=== PATIENT | male | born 1960 | race African-American/Black ===

== ENCOUNTER 2019-03-18 15:11 | Inpatient (IN) | payer MEDICAID ==
[~2019-03-18] VITALS: Ht 170.2 cm; Wt 65.8 kg
[2019-03-18] MEDS ORDERED: MORPHINE SULFATE 4 MG/ML CPJ (NOT FOR IM USE) IV STA (16:05)
[2019-03-18] MEDS ORDERED: ONDANSETRON HCL 4MG/2ML INJ IV STA (16:05)
[2019-03-18] MEDS ORDERED: SODIUM CHLORIDE 0.9% 1,000 ML IV ONE (16:05)
[2019-03-18] MEDS ORDERED: PIPERACILLIN/TAZ 3.375G PREMIX 50 ML IV ONE (16:15)
[2019-03-18] MEDS ORDERED: VANCOMYCIN 1 G PREMIX 200 ML IV ONE (16:15)
[2019-03-18 16:46] LABS: BASOPHILS % 0.8 % (0.0-2.0); EOSINOPHILS % 1.8 % (0.0-5.0); HEMATOCRIT. 37.9 % (42.0-52.0); HEMOGLOBIN. 12.7 g/dL (14.0-18.0); LYMPHOCYTES % 16.5 % (20.0-50.0); MEAN CORPUSCULAR HEMOGLOBIN 28.9 pg (28.0-32.0); MEAN CORPUSCULAR VOLUME 86.4 fL (80.0-94.0); MEAN PLATELET VOLUME 8.8 fl (7.4-10.4); MONOCYTES % 8.2 % (2.0-8.0); NEUTROPHILS % 72.7 % (40.0-76.0); PLATELET 337 x1000/uL (130-400); RED BLOOD CELL COUNT 4.38 mill/uL (4.7-6.1); RED CELL DISTRIBUTION WIDTH 15.7 % (11.6-14.6)
[2019-03-18 16:47] LABS: CHLORIDE 103 mEq/L (98-107)
[2019-03-18 16:50] LABS: PROTHROMBIN TIME 10.7 sec (9.6-11.0)
[2019-03-18 17:49] LABS: CLARITY URINE CLOUDY (CLEAR); COLOR URINE YELLOW (YELLOW); KETONES URINE NEGATIVE (NEGATIVE); LEUKOCYTE ESTERASE URINE 3+ (NEGATIVE); NITRITE URINE NEGATIVE (NEGATIVE); OCCULT BLOOD URINE NEGATIVE (NEGATIVE); PROTEIN URINE NEGATIVE (NEGATIVE); SPECIFIC GRAVITY URINE 1.012 (1.005-1.030); UROBILINOGEN URINE 0.2 E.U./dL (0.2-1.0)
[2019-03-18 22:00] VITALS: BP 130/86
[2019-03-18] MEDS ORDERED: DEXTROSE 50% WATER 50ML SYRINGE IV PRN (22:45)
[2019-03-18] MEDS ORDERED: ONDANSETRON HCL 4MG/2ML INJ IV PRN (22:45)
[2019-03-18] MEDS ORDERED: DIPHENHYDRAMINE 50MG/ML VIAL IV PRN (22:45)
[2019-03-19] VITALS: BP 124/74
[2019-03-19] MEDS ORDERED: PIPERACILLIN/TAZOBACTAM 3.375GM/50ML PREMIX IV ONE
[2019-03-19] MEDS: PIPERACILLIN/TAZOBACTAM 3.375 G in DEXT 5% WATER 100 ML IV SCH ×4 (01:30→18:00)
[2019-03-19] MEDS: MORPHINE SULFATE 2 MG/ML CPJ (NOT FOR IM USE) IV PRN ×3 (01:31→13:19)
[2019-03-19 04:00] VITALS: BP 123/68
[2019-03-19] MEDS: VANCOMYCIN 1 G PREMIX 200 ML IV SCH ×2 (06:06→18:22)
[2019-03-19 08:00] VITALS: BP 148/95
[2019-03-19] MEDS: BLOOD SUGAR DIAGNOSTIC STRIP TEST SCH ×4 (08:17→21:00)
[2019-03-19] MEDS: INSULIN LISPRO 100 UNITS/ML SUBCUT SCH ×4 (08:36→22:04)
[2019-03-19 12:15] VITALS: BP 123/81
[2019-03-19 12:29] LABS: METHADONE URINE SCREEN NEGATIVE (NEGATIVE); OPIATES URINE SCREEN PRESUMTIVE POSITIVE (NEGATIVE)
[2019-03-19 12:30] LABS: *AMPHETAMINES SCREEN URINE NEGATIVE (NEGATIVE); *BARBITURATES SCREEN URINE NEGATIVE (NEGATIVE); *BENZODIAZEPINES SCREEN URINE NEGATIVE (NEGATIVE); *COCAINE SCREEN URINE NEGATIVE (NEGATIVE); CANNABINOID URINE SCREEN NEGATIVE (NEGATIVE); PHENCYCLIDINE URINE SCREEN NEGATIVE (NEGATIVE)
[2019-03-19] MEDS: ENOXAPARIN 40MG/0.4ML SYR SUBCUT SCH (17:57)
[2019-03-19] MEDS: HYDROCODONE/ACETAMINOPHEN 5/325MG TABLET PO PRN ×2 (18:23→22:59)
[2019-03-19 20:00] VITALS: BP 125/81
[2019-03-19] MEDS ORDERED: INSULIN GLARGINE UD 100 UNITS/ML SYR SUBCUT SCH (22:00)
[2019-03-20] MEDS: PIPERACILLIN/TAZOBACTAM 3.375 G in DEXT 5% WATER 100 ML IV SCH ×4 (01:06→18:34)
[2019-03-20] MEDS: VANCOMYCIN 1 G PREMIX 200 ML IV SCH ×2 (03:25→16:19)
[2019-03-20] MEDS: HYDROCODONE/ACETAMINOPHEN 5/325MG TABLET PO PRN ×3 (03:35→16:21)
[2019-03-20 04:00] VITALS: BP 136/87
[2019-03-20] MEDS: DIPHENHYDRAMINE 25MG CAPSULE PO PRN ×3 (04:35→20:44)
[2019-03-20] MEDS: BLOOD SUGAR DIAGNOSTIC STRIP TEST SCH ×4 (06:17→20:39)
[2019-03-20 07:28] LABS: BASOPHILS % 0.9 % (0.0-2.0); EOSINOPHILS % 4.1 % (0.0-5.0); HEMATOCRIT. 36.1 % (42.0-52.0); HEMOGLOBIN. 12.1 g/dL (14.0-18.0); LYMPHOCYTES % 24.8 % (20.0-50.0); MEAN CORPUSCULAR HEMOGLOBIN 28.8 pg (28.0-32.0); MEAN CORPUSCULAR VOLUME 85.9 fL (80.0-94.0); MEAN PLATELET VOLUME 9.6 fl (7.4-10.4); MONOCYTES % 9.6 % (2.0-8.0); NEUTROPHILS % 60.6 % (40.0-76.0); PLATELET 318 x1000/uL (130-400); RED CELL DISTRIBUTION WIDTH 15.5 % (11.6-14.6)
[2019-03-20 07:33] LABS: CHLORIDE 100 mEq/L (98-107)
[2019-03-20 08:18] VITALS: BP 133/85
[2019-03-20] MEDS ORDERED: LANTUSUD SUBCUT (08:37)
[2019-03-20] MEDS: ENOXAPARIN 40MG/0.4ML SYR SUBCUT SCH (08:37)
[2019-03-20] MEDS: INSULIN LISPRO 100 UNITS/ML SUBCUT SCH ×4 (09:03→20:40)
[2019-03-20] MEDS: INSULIN GLARGINE UD 100 UNITS/ML SYR SUBCUT SCH ×2 (10:46→22:05)
[2019-03-20 11:36] VITALS: BP 126/79
[2019-03-20 15:23] VITALS: BP 119/72
[2019-03-20 20:00] VITALS: BP 120/72
[2019-03-20] MEDS: ZOLPIDEM TARTRATE 5MG TABLET PO PRN (21:11)
[2019-03-21] VITALS: BP 110/70
[2019-03-21] MEDS: PIPERACILLIN/TAZOBACTAM 3.375 G in DEXT 5% WATER 100 ML IV SCH ×4 (00:03→18:05)
[2019-03-21] MEDS: VANCOMYCIN 1 G PREMIX 200 ML IV SCH ×2 (03:54→16:29)
[2019-03-21 04:00] VITALS: BP 103/60
[2019-03-21] MEDS: BLOOD SUGAR DIAGNOSTIC STRIP TEST SCH ×4 (06:54→21:00)
[2019-03-21] MEDS: INSULIN LISPRO 100 UNITS/ML SUBCUT SCH ×4 (07:50→22:25)
[2019-03-21 08:29] VITALS: BP 108/75
[2019-03-21] MEDS: LACTOBACILLUS GG CAPSULE PO SCH ×3 (09:41→16:29)
[2019-03-21] MEDS: HYDROCODONE/ACETAMINOPHEN 5/325MG TABLET PO PRN ×3 (09:41→22:24)
[2019-03-21] MEDS: ENOXAPARIN 40MG/0.4ML SYR SUBCUT SCH (09:42)
[2019-03-21] MEDS: INSULIN GLARGINE UD 100 UNITS/ML SYR SUBCUT SCH ×2 (09:53→22:27)
[2019-03-21 12:13] VITALS: BP 139/86
[2019-03-21 16:06] VITALS: BP 130/75
[2019-03-21 20:00] VITALS: BP 111/64
[2019-03-21] MEDS: DIPHENHYDRAMINE 25MG CAPSULE PO PRN (22:49)
[2019-03-21] MEDS: ZOLPIDEM TARTRATE 5MG TABLET PO PRN (23:17)
[2019-03-22] VITALS: BP 123/71
[2019-03-22] MEDS: PIPERACILLIN/TAZOBACTAM 3.375 G in DEXT 5% WATER 100 ML IV SCH ×4 (00:20→18:05)
[2019-03-22 04:00] VITALS: BP 126/70
[2019-03-22] MEDS: VANCOMYCIN 1 G PREMIX 200 ML IV SCH ×2 (04:07→15:44)
[2019-03-22] MEDS: INSULIN LISPRO 100 UNITS/ML SUBCUT SCH ×4 (06:33→21:49)
[2019-03-22] MEDS: BLOOD SUGAR DIAGNOSTIC STRIP TEST SCH ×4 (06:33→21:45)
[2019-03-22 08:00] VITALS: BP 140/77
[2019-03-22] MEDS: LACTOBACILLUS GG CAPSULE PO SCH ×3 (09:16→18:05)
[2019-03-22] MEDS: ENOXAPARIN 40MG/0.4ML SYR SUBCUT SCH (09:17)
[2019-03-22] MEDS: INSULIN GLARGINE UD 100 UNITS/ML SYR SUBCUT SCH ×2 (09:29→21:50)
[2019-03-22 12:00] VITALS: BP 143/85
[2019-03-22] MEDS: HYDROCODONE/ACETAMINOPHEN 5/325MG TABLET PO PRN ×2 (15:46→20:30)
[2019-03-22 16:00] VITALS: BP 138/87
[2019-03-22 20:00] VITALS: BP 145/85
[2019-03-23] VITALS: BP 98/61
[2019-03-23] MEDS: PIPERACILLIN/TAZOBACTAM 3.375 G in DEXT 5% WATER 100 ML IV SCH ×4 (00:43→17:14)
[2019-03-23] MEDS: NICOTINE 21MG PATCH TD SCH ×2 (00:44→08:53)
[2019-03-23 04:00] VITALS: BP 130/83
[2019-03-23] MEDS: VANCOMYCIN 1 G PREMIX 200 ML IV SCH ×2 (04:31→16:00)
[2019-03-23] MEDS: HYDROCODONE/ACETAMINOPHEN 5/325MG TABLET PO PRN ×2 (04:52→15:59)
[2019-03-23] MEDS: BLOOD SUGAR DIAGNOSTIC STRIP TEST SCH ×4 (07:14→21:00)
[2019-03-23 08:42] VITALS: BP 133/84
[2019-03-23] MEDS: LACTOBACILLUS GG CAPSULE PO SCH ×3 (08:53→17:14)
[2019-03-23] MEDS: ENOXAPARIN 40MG/0.4ML SYR SUBCUT SCH (08:54)
[2019-03-23] MEDS: INSULIN LISPRO 100 UNITS/ML SUBCUT SCH ×4 (08:55→21:00)
[2019-03-23] MEDS: INSULIN GLARGINE UD 100 UNITS/ML SYR SUBCUT SCH ×2 (10:56→21:17)
[2019-03-23 12:39] VITALS: BP 120/74
[2019-03-23 16:00] VITALS: BP 133/81
[2019-03-24 00:30] VITALS: BP 140/87
[2019-03-24] MEDS: HYDROCODONE/ACETAMINOPHEN 5/325MG TABLET PO PRN ×3 (00:40→12:34)
[2019-03-24] MEDS: PIPERACILLIN/TAZOBACTAM 3.375 G in DEXT 5% WATER 100 ML IV SCH ×4 (00:40→18:13)
[2019-03-24] MEDS: VANCOMYCIN 1 G PREMIX 200 ML IV SCH ×2 (03:22→16:06)
[2019-03-24 04:18] VITALS: BP 142/92
[2019-03-24] MEDS: BLOOD SUGAR DIAGNOSTIC STRIP TEST SCH ×4 (07:08→21:32)
[2019-03-24] MEDS: INSULIN LISPRO 100 UNITS/ML SUBCUT SCH ×4 (07:50→21:41)
[2019-03-24 08:00] VITALS: BP 128/84
[2019-03-24] MEDS: ENOXAPARIN 40MG/0.4ML SYR SUBCUT SCH (08:37)
[2019-03-24] MEDS: NICOTINE 21MG PATCH TD SCH (08:37)
[2019-03-24] MEDS: LACTOBACILLUS GG CAPSULE PO SCH ×3 (08:37→17:28)
[2019-03-24] MEDS: INSULIN GLARGINE UD 100 UNITS/ML SYR SUBCUT SCH ×2 (10:14→21:23)
[2019-03-24 12:00] VITALS: BP 125/80
[2019-03-24 16:00] VITALS: BP 118/70
[2019-03-24] MEDS: DIPHENHYDRAMINE 25MG CAPSULE PO PRN (21:22)
[2019-03-25] MEDS: PIPERACILLIN/TAZOBACTAM 3.375 G in DEXT 5% WATER 100 ML IV SCH ×4 (02:14→18:31)
[2019-03-25] MEDS: VANCOMYCIN 1 G PREMIX 200 ML IV SCH ×2 (04:41→15:28)
[2019-03-25 04:46] VITALS: BP 133/78
[2019-03-25] MEDS: BLOOD SUGAR DIAGNOSTIC STRIP TEST SCH ×4 (06:26→21:13)
[2019-03-25] MEDS: INSULIN LISPRO 100 UNITS/ML SUBCUT SCH ×4 (07:50→21:00)
[2019-03-25] MEDS: ENOXAPARIN 40MG/0.4ML SYR SUBCUT SCH (08:18)
[2019-03-25] MEDS: NICOTINE 21MG PATCH TD SCH (08:19)
[2019-03-25] MEDS: LACTOBACILLUS GG CAPSULE PO SCH ×3 (08:19→16:47)
[2019-03-25 08:46] VITALS: BP 139/85
[2019-03-25] MEDS: INSULIN GLARGINE UD 100 UNITS/ML SYR SUBCUT SCH ×2 (09:20→21:26)
[2019-03-25] MEDS: HYDROCODONE/ACETAMINOPHEN 5/325MG TABLET PO PRN ×2 (11:51→17:14)
[2019-03-25 12:01] VITALS: BP 131/81
[2019-03-25 15:59] VITALS: BP 151/95
[2019-03-25] MEDS ORDERED: INSULIN LISPRO 100 UNITS/ML SUBCUT NR (16:27)
[2019-03-25 20:00] VITALS: BP 128/82
[2019-03-26] VITALS: BP 128/87
[2019-03-26] MEDS: HYDROCODONE/ACETAMINOPHEN 5/325MG TABLET PO PRN ×4 (00:32→20:42)
[2019-03-26] MEDS: PIPERACILLIN/TAZOBACTAM 3.375 G in DEXT 5% WATER 100 ML IV SCH ×5 (00:58→23:28)
[2019-03-26] MEDS: VANCOMYCIN 1 G PREMIX 200 ML IV SCH ×2 (04:00→18:56)
[2019-03-26 05:43] VITALS: BP 123/83
[2019-03-26] MEDS: BLOOD SUGAR DIAGNOSTIC STRIP TEST SCH ×4 (06:26→20:38)
[2019-03-26] MEDS: INSULIN LISPRO 100 UNITS/ML SUBCUT SCH ×4 (07:50→20:37)
[2019-03-26 08:00] VITALS: BP 131/85
[2019-03-26] MEDS: ENOXAPARIN 40MG/0.4ML SYR SUBCUT SCH (09:37)
[2019-03-26] MEDS: LACTOBACILLUS GG CAPSULE PO SCH ×3 (09:39→18:56)
[2019-03-26] MEDS: NICOTINE 21MG PATCH TD SCH (09:39)
[2019-03-26] MEDS: INSULIN GLARGINE UD 100 UNITS/ML SYR SUBCUT SCH ×2 (09:46→21:51)
[2019-03-26 12:00] VITALS: BP 110/79
[2019-03-26 16:00] VITALS: BP 112/65
[2019-03-26 20:00] VITALS: BP 138/86
[2019-03-26] MEDS: DIPHENHYDRAMINE 25MG CAPSULE PO PRN (23:36)
[2019-03-27] VITALS: BP 114/72
[2019-03-27] MEDS: HYDROCODONE/ACETAMINOPHEN 5/325MG TABLET PO PRN ×3 (01:51→20:11)
[2019-03-27] MEDS: VANCOMYCIN 1 G PREMIX 200 ML IV SCH ×2 (04:13→15:39)
[2019-03-27 04:20] VITALS: BP 131/74
[2019-03-27] MEDS: PIPERACILLIN/TAZOBACTAM 3.375 G in DEXT 5% WATER 100 ML IV SCH ×4 (06:19→23:35)
[2019-03-27] MEDS: INSULIN LISPRO 100 UNITS/ML SUBCUT SCH ×4 (07:09→21:30)
[2019-03-27] MEDS: BLOOD SUGAR DIAGNOSTIC STRIP TEST SCH ×4 (07:09→20:21)
[2019-03-27] MEDS: ENOXAPARIN 40MG/0.4ML SYR SUBCUT SCH (09:00)
[2019-03-27] MEDS: NICOTINE 21MG PATCH TD SCH (09:00)
[2019-03-27] MEDS: LACTOBACILLUS GG CAPSULE PO SCH ×3 (09:00→17:49)
[2019-03-27] MEDS: INSULIN GLARGINE UD 100 UNITS/ML SYR SUBCUT SCH ×2 (10:00→21:30)
[2019-03-27 12:00] VITALS: BP 136/85
[2019-03-27 15:53] VITALS: BP 116/77
[2019-03-27 20:27] VITALS: BP 94/68
[2019-03-28] VITALS: BP 125/79
[2019-03-28] MEDS: HYDROCODONE/ACETAMINOPHEN 5/325MG TABLET PO PRN ×4 (00:34→20:28)
[2019-03-28] MEDS: VANCOMYCIN 1 G PREMIX 200 ML IV SCH ×2 (03:03→15:34)
[2019-03-28 04:00] VITALS: BP 133/80
[2019-03-28] MEDS: PIPERACILLIN/TAZOBACTAM 3.375 G in DEXT 5% WATER 100 ML IV SCH ×3 (05:53→19:13)
[2019-03-28] MEDS: BLOOD SUGAR DIAGNOSTIC STRIP TEST SCH ×4 (06:32→21:00)
[2019-03-28 06:42] LABS: CHLORIDE 103 mEq/L (98-107)
[2019-03-28 06:51] LABS: BASOPHILS % 0.8 % (0.0-2.0); HEMATOCRIT. 35.2 % (42.0-52.0); HEMOGLOBIN. 11.8 g/dL (14.0-18.0); LYMPHOCYTES % 26.2 % (20.0-50.0); MEAN CORPUSCULAR HEMOGLOBIN 28.8 pg (28.0-32.0); MEAN CORPUSCULAR VOLUME 85.8 fL (80.0-94.0); MEAN PLATELET VOLUME 8.9 fl (7.4-10.4); MONOCYTES % 12.3 % (2.0-8.0); NEUTROPHILS % 53.7 % (40.0-76.0); PLATELET 296 x1000/uL (130-400); RED BLOOD CELL COUNT 4.11 mill/uL (4.7-6.1); RED CELL DISTRIBUTION WIDTH 15.8 % (11.6-14.6)
[2019-03-28] MEDS: INSULIN LISPRO 100 UNITS/ML SUBCUT SCH ×4 (07:50→21:59)
[2019-03-28 08:00] VITALS: BP 138/83
[2019-03-28] MEDS: ENOXAPARIN 40MG/0.4ML SYR SUBCUT SCH (08:15)
[2019-03-28] MEDS: LACTOBACILLUS GG CAPSULE PO SCH ×3 (08:15→17:00)
[2019-03-28] MEDS: NICOTINE 21MG PATCH TD SCH (08:15)
[2019-03-28] MEDS: INSULIN GLARGINE UD 100 UNITS/ML SYR SUBCUT SCH ×2 (10:00→22:00)
[2019-03-28 16:00] VITALS: BP 135/84
[2019-03-28 20:44] VITALS: BP 128/76
[2019-03-29 04:00] VITALS: BP 113/76
[2019-03-29] MEDS: VANCOMYCIN 1 G PREMIX 200 ML IV SCH ×2 (05:15→16:03)
[2019-03-29] MEDS: PIPERACILLIN/TAZOBACTAM 3.375 G in DEXT 5% WATER 100 ML IV SCH ×5 (05:16→17:58)
[2019-03-29] MEDS: HYDROCODONE/ACETAMINOPHEN 5/325MG TABLET PO PRN ×3 (05:17→20:25)
[2019-03-29] MEDS: BLOOD SUGAR DIAGNOSTIC STRIP TEST SCH ×4 (07:20→20:32)
[2019-03-29] MEDS: INSULIN LISPRO 100 UNITS/ML SUBCUT SCH ×4 (07:50→20:32)
[2019-03-29 08:47] VITALS: BP 130/82
[2019-03-29] MEDS: LACTOBACILLUS GG CAPSULE PO SCH ×3 (09:00→17:58)
[2019-03-29] MEDS: ENOXAPARIN 40MG/0.4ML SYR SUBCUT SCH (09:33)
[2019-03-29] MEDS: NICOTINE 21MG PATCH TD SCH (09:33)
[2019-03-29] MEDS: INSULIN GLARGINE UD 100 UNITS/ML SYR SUBCUT SCH ×2 (10:00→21:37)
[2019-03-29 12:30] VITALS: BP 143/89
[2019-03-29 16:45] VITALS: BP 139/86
[2019-03-29 20:00] VITALS: BP 145/89
[2019-03-30] VITALS: BP 144/89
[2019-03-30] MEDS: PIPERACILLIN/TAZOBACTAM 3.375 G in DEXT 5% WATER 100 ML IV SCH ×4 (00:06→17:24)
[2019-03-30] MEDS: HYDROCODONE/ACETAMINOPHEN 5/325MG TABLET PO PRN ×3 (00:43→23:03)
[2019-03-30 04:00] VITALS: BP 143/89
[2019-03-30] MEDS: VANCOMYCIN 1 G PREMIX 200 ML IV SCH ×2 (04:00→16:00)
[2019-03-30 08:00] VITALS: BP 122/70
[2019-03-30] MEDS: BLOOD SUGAR DIAGNOSTIC STRIP TEST SCH ×4 (08:03→21:26)
[2019-03-30] MEDS: INSULIN LISPRO 100 UNITS/ML SUBCUT SCH ×4 (09:03→21:49)
[2019-03-30] MEDS: INSULIN GLARGINE UD 100 UNITS/ML SYR SUBCUT SCH ×2 (09:04→21:53)
[2019-03-30] MEDS: LACTOBACILLUS GG CAPSULE PO SCH ×3 (09:04→17:00)
[2019-03-30] MEDS: ENOXAPARIN 40MG/0.4ML SYR SUBCUT SCH (09:05)
[2019-03-30] MEDS: NICOTINE 21MG PATCH TD SCH (09:11)
[2019-03-30 12:00] VITALS: BP 126/77
[2019-03-30 16:00] VITALS: BP 124/75
[2019-03-30 20:00] VITALS: BP_SYST 114; BP_SYST 132; BP_DIAS 59; BP_DIAS 85
[2019-03-31] VITALS: BP 129/76
[2019-03-31] MEDS: PIPERACILLIN/TAZOBACTAM 3.375 G in DEXT 5% WATER 100 ML IV SCH ×3 (01:03→17:19)
[2019-03-31 04:00] VITALS: BP 138/81
[2019-03-31] MEDS: VANCOMYCIN 1 G PREMIX 200 ML IV SCH ×2 (04:53→16:00)
[2019-03-31] MEDS: BLOOD SUGAR DIAGNOSTIC STRIP TEST SCH ×3 (07:20→17:18)
[2019-03-31] MEDS: INSULIN LISPRO 100 UNITS/ML SUBCUT SCH ×3 (07:50→17:18)
[2019-03-31 08:00] VITALS: BP 130/75
[2019-03-31] MEDS: LACTOBACILLUS GG CAPSULE PO SCH ×3 (10:13→17:00)
[2019-03-31] MEDS: ENOXAPARIN 40MG/0.4ML SYR SUBCUT SCH (10:13)
[2019-03-31] MEDS: NICOTINE 21MG PATCH TD SCH (10:14)
[2019-03-31] MEDS: INSULIN GLARGINE UD 100 UNITS/ML SYR SUBCUT SCH (10:15)
[2019-03-31] MEDS: HYDROCODONE/ACETAMINOPHEN 5/325MG TABLET PO PRN (17:20)
[2019-03-31 18:10] VITALS: BP 130/75
== END 2019-03-31 18:40 | disposition home or self-care (01) | DRG 197 ==
LOC: ER 15:11 → 6EST 20:29 → EDBEDREQTM 20:32 → EDBEDREQ 20:32 → ENRESERV 21:18 → 6WST 03-19 12:12
PROVIDERS: ADMIT Internal Medicine; ATTEND Internal Medicine
DX: E11.51 Type 2 diabetes mellitus with diabetic peripheral angiopathy without gangrene (principal); E11.621 Type 2 diabetes mellitus with foot ulcer; E11.42 Type 2 diabetes mellitus with diabetic polyneuropathy; E87.2 Acidosis; L03.115 Cellulitis of right lower limb; L97.509 Non-pressure chronic ulcer of other part of unspecified foot with unspecified severity; D64.9 Anemia, unspecified; E11.649 Type 2 diabetes mellitus with hypoglycemia without coma; E86.0 Dehydration; S90.812A Abrasion, left foot, initial encounter; S90.811A Abrasion, right foot, initial encounter; X58.XXXA Exposure to other specified factors, initial encounter; L84 Corns and callosities; N39.0 Urinary tract infection, site not specified; Z59.0 Homelessness; Z89.421 Acquired absence of other right toe(s); Y93.89 Activity, other specified; Y92.89 Other specified places as the place of occurrence of the external cause; Y99.8 Other external cause status; Z79.84 Long term (current) use of oral hypoglycemic drugs; Z91.19 Patient's noncompliance with other medical treatment and regimen
CPT/HCPCS: 36415; 73630; 80048; 80202; 80305; 81003; 82962; 83036; 83605; 84145; 84484; 96361; 96365; 96367; 96375; 97162; 97164; 99285; A6261; C1893; J1650; J1815; J2270; J2405; J2543; J3370; J7030; J7040; J7060; Q0163